=== PATIENT | female | born 1970 | race Caucasian/White ===

== ENCOUNTER 2017-12-29 16:04 | Emergency (ER) | payer MEDICAID ==
--- NOTE | 2017-12-29 16:17 | ED Physician Chart ---
ED Chief Complaint/HPI - Patient Information Date Seen:: 12/29/17 Chief Complaint:: SENT IN FROM NURSING FACILITY FOR REPLACEMENT OF G-TUBE. History of Present Illness:: THE PATIENT IS NON-VERBAL AND UNABLE TO GIVE ANY INFORMATION REGARDING HER UNDERLYING DIAGNOSIS OR WHEN THE G-TUBE WAS DISLODGED. I'M NOT SEEING ANY PAPERWORK ACCOMPANYING THE PATIENT WHICH GIVES ADDITIONAL INFORMATION. 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 THERE WAS A SINGLE SEIZURE AT THE TIME OF RUPTURE. SHE IS OTHERWISE HEALTHY. THE PATIENT HAD ONSET OF HYPERTENSION SHORTLY BEFORE THE INCIDENT WITH THE ANEURYSM RUPTURE. ED Review of Systems - Review of Systems General/Constitutional: Other (PATIENT WAS NONVERBAL AND UNABLE TO RESPOND TO REVIEW SYSTEM QUESTIONS.) ED Past Medical History - Past Medical History Obtainable: No Family Medical History - Family Member Sister Hx Family Cancer: No Hx Family Coronary Artery Disease: No Hx Family Congestive Heart Failure: No Hx Family Hypertension: No Hx Family Stroke: No Hx Family Diabetes: No Hx Family Dementia: No Hx Family AIDS: No Hx Family HIV: No Hx Family Hepatitis: No ED Physical Exam - Physical Examination General/Constitutional: Awake, Well-developed, well-nourished, No distress, Non- toxic appearing Other Gen/Cons comments:: NOT AMBULATORY. NONRESPONSIVE TO VERBAL QUESTIONS OR COMMANDS. Head: Atraumatic Eyes: Lids, conjuctiva normal, PERRL Skin: Nl inspection, No rash, No skin lesions ENMT: Nasal exam nl, Lips, teeth, gums nl, Oropharynx nl, Tonsils nl Neck: Nontender ( INCREASED MUSCLE TENSION WITH AP FLEXION OF NECK.), No stridor Respiratory: Nl effort/Exclusion, Clear to Auscultation, No Wheeze/Rhonchi/Rales Cardio Vascular: No murmur, gallop, rubs Other Cardio Vascular comments:: AT THE TIME OF MY EXAMINATION THE PATIENT HAD A MILD REGULAR TACHYCARDIA IN THE 110 RANGE. THIS CORRECTED ITSELF PRIOR TO DISCHARGE. GI: No tenderness/rebounding/guarding, No organomegaly, Normal BS's, Nondistended, No McBurney tenderness Other GI comments:: RECTAL EXAMINATION DEFERRED AT MY DISCRETION. GASTROSTOMY STOMA IN THE LEFT MID ABDOMEN. ED Labs/Radiology/EKG Results - Lab Results Results: THE FEEDING GASTROSTOMY TUBE WAS EASILY REINSERTED THROUGH THE ABDOMINAL WALL. AN INJECTION OF GASTRO- GRAPH AND CONFIRM PLACEMENT OF THE TWO IN THE STOMACH. ED Assessment - Assessment General Assessment: CASE SUMMARY: THIS 47-YEAR-OLD FEMALE WAS SENT TO THE EMERGENCY DEPARTMENT AFTER G-TUBE BECAME DISPLACED. 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 THE GASTROSTOMY STOMA WAS PATENT AND A FRESH G TUBE WAS INSERTED WITHOUT DIFFICULTY. PATIENT TOLERATED THE PROCEDURE WELL. GASTRO GRAPH AND INJECTION CONFIRMED PLACEMENT OF THE G2. SHE WAS DISCHARGED BACK TO HER NURSING FACILITY IN STABLE CONDITION. MDM DDX FOR DISPLACED G-TUBE: NOT OBSTRUCTION OF G-TUBE ED Septic Shock - . Is Septic Shock (SBP<90, OR Lactate>4 mmol\L) present?: No ED Discharge Plan - Patient Disposition Admit/Discharge/Transfer: Discharge/Transfered to SNF Instructions: PEG, Home Care, [id number], Gastric Tube Replacement
[2017-12-29] MEDS ORDERED: Diatrizoate Meglumine/Diatri 30 mL Sol ONE (16:54)
--- NOTE | 2017-12-30 09:26 | Diagnostic Imaging Report ---
Upper GI HISTORY: Gastrostomy tube placement Water-soluble contrast was instilled through the patient's gastrostomy tube. The exam demonstrates opacification of the gastric lumen with free flow of contrast into the small bowel. IMPRESSION: 1. Confirmation of gastrostomy tube within the gastric lumen
== END 2017-12-29 18:15 ==
LOC: ER 16:04
DX: K94.23 Gastrostomy malfunction (principal)
CPT/HCPCS: 81025-TC; Z7502